=== PATIENT | female | born 1995 | race African-American/Black ===

== ENCOUNTER 2019-02-10 15:42 | Emergency (ER) | payer OTHER ==
[~2019-02-10] VITALS: Ht 170.2 cm; Wt 54.0 kg
[2019-02-10 15:56] VITALS: BP 110/80
== END 2019-02-10 19:39 | disposition left against medical advice (07) ==
LOC: ER 15:42
DX: R51 Headache (principal); Z53.21 Procedure and treatment not carried out due to patient leaving prior to being seen by health care provider